=== PATIENT | female | born 1980 | race African-American/Black ===

== ENCOUNTER 2017-11-26 01:16 | Emergency (ER) | payer MEDICAID ==
[~2017-11-26] VITALS: Ht 157.5 cm; Wt 65.8 kg
[2017-11-26] MEDS ORDERED: Sodium Chloride 500ML 500 ML IV ONE (01:42)
[2017-11-26] MEDS ORDERED: Tubing IV Cassette IV ONE (01:53)
[2017-11-26 02:06] LABS: BASOPHILS % (AUTO) 1.1 % (0.0-2.0); HEMATOCRIT 37.7 % (37.0-47.0); HEMOGLOBIN 11.7 G/DL (12.0-16.0); LYMPHOCYTES % (AUTO) 37.9 % (20.0-45.0); MEAN CORPUSCULAR VOLUME 75 FL (80-99); MONOCYTES % (AUTO) 7.7 % (1.0-10.0); NEUTROPHILS % (AUTO) 51.4 % (45.0-75.0); PLATELET COUNT 260 K/UL (150-450); RED BLOOD COUNT 4.99 M/UL (4.20-5.40); WHITE BLOOD COUNT 7.5 K/UL (4.8-10.8)
[2017-11-26 02:15] LABS: ANION GAP 7 mmol/L (5-15); BLOOD UREA NITROGEN 16 mg/dL (7-18); CALCIUM 8.6 MG/DL (8.5-10.1); CARBON DIOXIDE 26 MMOL/L (21-32); CHLORIDE 104 MMOL/L (98-107); POTASSIUM 3.7 MMOL/L (3.5-5.1); SODIUM 137 MMOL/L (136-145)
[2017-11-26 02:19] LABS: ALANINE AMINOTRANSFERASE 14 U/L (12-78); ALBUMIN 4.1 G/DL (3.4-5.0); ALBUMIN/GLOBULIN RATIO 1.1 (1.0-2.7); ALKALINE PHOSPHATASE 63 U/L (46-116); ASPARTATE AMINO TRANSFERASE 17 U/L (15-37); BILIRUBIN,TOTAL 0.3 MG/DL (0.2-1.0)
--- NOTE | 2017-11-26 02:28 | Emergency Room Report ---
History of Present Illness General Chief Complaint: Abdominal Pain Source: Patient Present Illness HPI 37-year-old female presents to ED complaining of spotting and abdominal pain. Started approximately 5 days ago. Patient notes initial spotting and test yesterday which was positive. Patient states she passed large clots yesterday. Pain is cramping, 8/10, nonradiating. Denies fevers or chills. Denies nausea or vomiting. No other aggravating relieving factors. Denies any other associated symptoms Allergies: Coded Allergies: No Known Allergies (Unverified , 04/08/16) Patient History Past Medical History: none Past Surgical History: none Pertinent Family History: none Social History: Denies: smoking, alcohol use, drug use Last Menstrual Period: 11/20/17 Now: No - Possible miscarriage Immunizations: UTD Reviewed Nursing Documentation: PMH: Agreed, PSxH: Agreed Nursing Documentation-PMH Past Medical History: No Stated History Review of Systems All Other Systems: negative except mentioned in HPI Physical Exam Vital Signs Date Time Temp Pulse Resp B/P (MAP) Pulse Ox O2 Delivery O2 Flow Rate FiO2 11/26/17 01:22 98.1 97 16 111/76 100 Room Air Sp02 EP Interpretation: reviewed, normal General Appearance: no apparent distress, alert, GCS 15, non-toxic Head: normocephalic, atraumatic Eyes: bilateral eye normal inspection, bilateral eye PERRL ENT: hearing grossly normal, normal pharynx, no angioedema, normal voice Neck: full range of motion, supple/symm/no masses Respiratory: chest non-tender, lungs clear, normal breath sounds, speaking full sentences Cardiovascular #1: regular rate, rhythm, no edema Cardiovascular #2: 2+ carotid (R), 2+ carotid (L), 2+ radial (R), 2+ radial (L) , 2+ dorsalis pedis (R), 2+ dorsalis pedis (L) Gastrointestinal: normal bowel sounds, non tender, soft, non-distended, no guarding, no rebound Rectal: deferred Genitourinary: normal inspection, no CVA tenderness Musculoskeletal: back normal, gait/station normal, normal range of motion, non- tender Neurologic: alert, oriented x3, responsive, motor strength/tone normal, sensory intact, speech normal Psychiatric: judgement/insight normal, memory normal, mood/affect normal, no suicidal/homicidal ideation Reflexes: 3+ bicep (R), 3+ bicep (L), 3+ tricep (R), 3+ tricep (L), 3+ knee (R) , 3+ knee (L) Skin: normal color, no rash, warm/dry, well hydrated Lymphatic: no adenopathy Medical Decision Making Diagnostic Impression: Primary Impression: Miscarriage ER Course Hospital Course 37-year-old F presents to ED complaining of vaginal bleeding, pain. + Differential diagnoses include: gastrits, gastroenterits, ectopic , ovarian torsion/cyst, UTI Clinical course Patient placed on stretcher in ED. After initial history and physical I ordered labs, IV fluids and pelvic ultrasound. Labs-no leukocytosis, electrolytes okay, beta hCG 13,000 Pelvic ultrasound- no IUP detected, heterogenous material noted in endocervix. L hemorrhagic cyst Clinically, findings consistent with ongoing miscarriage. Discussed findings with patient. Recommended close followup with SWIMMING POOL SERVICE TECHNICIAN for repeat ultrasound and to make sure beta hCG is trending down Diagnosis - miscarriage Stable and discharged to home with Rx Tylenol #3. Followup with PMD/SWIMMING POOL SERVICE TECHNICIAN. Return to ED if symptoms recur or worsen Labs Test 11/26/17 01:51 11/26/17 02:01 White Blood Count 7.5 K/UL (4.8-10.8) Red Blood Count 4.99 M/UL (4.20-5.40) Hemoglobin 11.7 G/DL (12.0-16.0) Hematocrit 37.7 % (37.0-47.0) Mean Corpuscular Volume 75 FL (80-99) Mean Corpuscular Hemoglobin 23.3 PG (27.0-31.0) Mean Corpuscular Hemoglobin Concent 30.9 G/DL (32.0-36.0) Red Cell Distribution Width 12.0 % (11.6-14.8) Platelet Count 260 K/UL (150-450) Mean Platelet Volume 10.1 FL (6.5-10.1) Neutrophils (%) (Auto) 51.4 % (45.0-75.0) Lymphocytes (%) (Auto) 37.9 % (20.0-45.0) Monocytes (%) (Auto) 7.7 % (1.0-10.0) Eosinophils (%) (Auto) 2.0 % (0.0-3.0) Basophils (%) (Auto) 1.1 % (0.0-2.0) Sodium Level 137 MMOL/L (136-145) Potassium Level 3.7 MMOL/L (3.5-5.1) Chloride Level 104 MMOL/L (98-107) Carbon Dioxide Level 26 MMOL/L (21-32) Anion Gap 7 mmol/L (5-15) Blood Urea Nitrogen 16 mg/dL (7-18) Creatinine 1.0 MG/DL (0.55-1.30) Estimat Glomerular Filtration Rate > 60 mL/min (>60) Glucose Level 109 MG/DL (74-106) Calcium Level 8.6 MG/DL (8.5-10.1) Total Bilirubin 0.3 MG/DL (0.2-1.0) Aspartate Amino Transf (AST/SGOT) 17 U/L (15-37) Alanine Aminotransferase (ALT/SGPT) 14 U/L (12-78) Alkaline Phosphatase 63 U/L (46-116) Total Protein 8.0 G/DL (6.4-8.2) Albumin 4.1 G/DL (3.4-5.0) Globulin 3.9 g/dL Albumin/Globulin Ratio 1.1 (1.0-2.7) Lipase 151 U/L (73-393) Human Chorionic Gonadotropin, Quant 73305 mIU/mL (1-6) Human Chorionic Gonadotropin, Qual Positive CT/MRI/US Diagnostic Results CT/MRI/US Diagnostic Results : Imaging Test Ordered: OB US Impression heterogenous material in endocervix. L hemorrhagic cyst. no IUP identified Last Vital Signs Date Time Temp Pulse Resp B/P (MAP) Pulse Ox O2 Delivery O2 Flow Rate FiO2 11/26/17 01:22 98.1 97 16 111/76 100 Room Air Status: improved Disposition: HOME, SELF-CARE Condition: Stable Scripts Acetaminophen With Codeine (T#3) (TYLENOL #3 TAB*) Y Tab 1 TAB ORAL Q8H Y for For Pain, #20 TAB Prov: ED PERRIN M.D. 11/26/17 Referrals: NOT CHOSEN IPA/,REFERRING (PCP) ED PERRIN M.D. Nov 26, 2017 02:28
[2017-11-26 03:15] VITALS: BP 116/74
[2017-11-26] MEDS ORDERED: ACETAMINOPHEN-1 EAC1 ORAL (03:41)
[2017-11-26 04:00] VITALS: BP 116/74
--- NOTE | 2017-11-29 10:36 | Diagnostic Imaging Report ---
Indication: Pelvic bleeding with beta hCG of 13,000. Technique: Transabdominal and endovaginal pelvic ultrasound. Comparison: None Findings: Uterus measures 8.8 x 4.6 cm. There is no intrauterine . There is heterogeneous fluid in the endometrial canal. The endometrial echo complex is heterogeneous with areas of echogenicity grossly measuring approximately 1.3 cm. The right ovary measures 2.8 x 1.8 cm and is unremarkable. The left ovary measures approximately 5.2 x 2.6 cm with a heterogeneous and thick walled cystic structure along its posterior aspect measuring approximately 2.4 cm. Impression: No intrauterine identified. Heterogeneous fluid in the endometrial canal with heterogeneous echogenicity of the endometrial echo complex grossly measuring 1.3 cm. Findings could represent a spontaneous but possibility of ectopic cannot be excluded. Clinical/laboratory correlation recommended. Gynecological evaluation recommended. Approximately 2.4 cm thick-walled cystic structure involving the posterior aspect of the left ovary could represent a corpus luteum or hemorrhagic cyst. Follow-up recommended for further evaluation. Findings discussed with Dr. Meraz at 0830 hours by phone.
== END 2017-11-26 04:00 | disposition home or self-care (01) ==
LOC: EMR 01:33
DX: O03.9 Complete or unspecified spontaneous abortion without complication (principal)
CPT/HCPCS: 36415; 76830; 76856; 80053; 83690; 84702; 84703; 85025; 96360; 99284; J7040

== ENCOUNTER 2017-12-08 10:55 | Observation (INO) | payer MEDICAID ==
[~2017-12-08] VITALS: Ht 157.5 cm; Wt 59.0 kg
[2017-12-08] VITALS (11 sets, daily range): BP systolic 93–121; BP diastolic 49–79
[~2017-12-08 10:55] MED LIST: ACETAMINOPHEN-1 EAC1 ORAL; Dexamethasone 4mg/ml vial ONE; Glycopyrrolate 0.2mg/ml 1ml Vial ONE; Ketorolac 30mg Inj ONE; LR 1000ml ONE; Metoclopramide 10mg/2ml Inj ONE; Midazolam 2mg/2ml Inj ONE; NS Irrig 1000ml ONE; Nimbex 2mg/ml Inj 10ML IVP ONE; Sterile Water Irrig 1000ml IRRIG ONE; Succinylcholine 20mg/ml 10ml vial ONE; fentaNYL 100 mcg/2 mL IV ONE
[2017-12-08] MEDS ORDERED: NKM (11:17)
[2017-12-08] MEDS ORDERED: Ketorolac 30mg Inj IV ONE (11:45)
[2017-12-08 12:27] LABS: BASOPHILS % (AUTO) 1.7 % (0.0-2.0); EOSINOPHILS % (AUTO) 0.9 % (0.0-3.0); HEMATOCRIT 34.3 % (37.0-47.0); HEMOGLOBIN 10.3 G/DL (12.0-16.0); LYMPHOCYTES % (AUTO) 33.9 % (20.0-45.0); MEAN CORPUSCULAR VOLUME 77 FL (80-99); NEUTROPHILS % (AUTO) 56.5 % (45.0-75.0); PLATELET COUNT 270 K/UL (150-450); RED BLOOD COUNT 4.48 M/UL (4.20-5.40); RED CELL DISTRIBUTION WIDTH 12.3 % (11.6-14.8); WHITE BLOOD COUNT 5.5 K/UL (4.8-10.8)
[2017-12-08 12:38] LABS: APPEARANCE,URINE SLIGHTLY CLOUDY; BILIRUBIN, URINE NEGATIVE (NEGATIVE); COLOR,URINE PALE YELLOW; GLUCOSE, URINE (UA) NEGATIVE (NEGATIVE); KETONES,URINE NEGATIVE (NEGATIVE); LEUKOCYTE ESTERASE ,URINE 1+ (NEGATIVE); NITRITE,URINE NEGATIVE (NEGATIVE); PH,URINE 7 (4.5-8.0); PROTEIN,URINE NEGATIVE (NEGATIVE); UROBILINOGEN,URINE NORMAL MG/DL (0.0-1.0)
[2017-12-08 12:44] LABS: ANION GAP 8 mmol/L (5-15); BLOOD UREA NITROGEN 7 mg/dL (7-18); CALCIUM 9.7 MG/DL (8.5-10.1); CARBON DIOXIDE 28 MMOL/L (21-32); CHLORIDE 102 MMOL/L (98-107); CREATININE 0.7 MG/DL (0.55-1.30); POTASSIUM 3.9 MMOL/L (3.5-5.1); SODIUM 138 MMOL/L (136-145)
[2017-12-08 12:48] LABS: ALANINE AMINOTRANSFERASE 9 U/L (12-78); ALBUMIN/GLOBULIN RATIO 1.1 (1.0-2.7); ALKALINE PHOSPHATASE 57 U/L (46-116); ASPARTATE AMINO TRANSFERASE 17 U/L (15-37); BILIRUBIN,TOTAL 0.5 MG/DL (0.2-1.0)
--- NOTE | 2017-12-08 14:03 | Emergency Room Report ---
History of Present Illness General Chief Complaint: Abdominal Pain Source: Patient Present Illness HPI 37-year-old female presents with sharp abdominal pain since last night Used only one pad for a small episode of vaginal bleeding this morning over the last week has had abdominal cramping with vaginal bleeding, clots Was here one week prior, beta quant 13k, no IUP on sono Was told to followup for repeat sono - wasnt able to get repeat sono in the interim Allergies: Coded Allergies: No Known Allergies (Unverified , 04/08/16) Patient History Past Medical History: none Past Surgical History: none Pertinent Family History: none Social History: Denies: smoking, alcohol use, drug use Last Menstrual Period: 09/2017 Now: Yes : 3 Para: 2 Reviewed Nursing Documentation: PMH: Agreed, PSxH: Agreed Nursing Documentation-PMH Past Medical History: No Stated History Review of Systems All Other Systems: negative except mentioned in HPI Physical Exam Vital Signs Date Time Temp Pulse Resp B/P (MAP) Pulse Ox O2 Delivery O2 Flow Rate FiO2 12/08/17 11:11 98.8 86 16 109/70 99 Room Air Sp02 EP Interpretation: reviewed, normal General Appearance: normal inspection, well appearing, no apparent distress, alert, GCS 15, non-toxic Head: normocephalic, atraumatic Eyes: bilateral eye PERRL, bilateral eye EOMI ENT: normal ENT inspection, hearing grossly normal, normal pharynx, no angioedema, normal voice, TMs + canals normal, uvula midline, moist mucus membranes Neck: normal inspection, full range of motion, supple, thyroid normal, no meningismus, no bony tend Respiratory: normal inspection, lungs clear, normal breath sounds, no rhonchi, no respiratory distress, no retraction, no accessory muscle use, no wheezing, speaking full sentences Cardiovascular #1: regular rate, rhythm, no edema, no JVD, normal capillary refill Gastrointestinal: normal inspection, normal bowel sounds, non tender, soft, no mass, no peritonitis, non-distended, no guarding, no hernia, no pulsatile mass Genitourinary: no CVA tenderness Musculoskeletal: normal inspection, back normal, normal range of motion, no calf tenderness, pelvis stable, [place]'s Sign negative Neurologic: normal inspection, alert, oriented x3, responsive, residential building inspector III-XII nml as tested, motor strength/tone normal, cerebellar normal, normal gait, speech normal Psychiatric: normal inspection, judgement/insight normal, mood/affect normal, no suicidal/homicidal ideation, no delusions Skin: normal inspection, normal color, no rash Lymphatic: normal inspection, no adenopathy Medical Decision Making Diagnostic Impression: Primary Impression: Ectopic Qualified Codes: O00.90 - Unspecified ectopic without intrauterine Additional Impressions: Abdominal pain Qualified Codes: R10.84 - Generalized abdominal pain Vaginal bleeding ER Course VSS, afebrile H&h stable Urine preg + 13k to 35K on beta HCG Sono today no IUP, + free fluid Suspected ectopic given rising beta HCG Endorsed to Dr Lombardi working with Dr Brooks at 2pm Will need to go to OR T&S, coags in progress IVF running Last Vital Signs Date Time Temp Pulse Resp B/P (MAP) Pulse Ox O2 Delivery O2 Flow Rate FiO2 12/08/17 12:22 98.8 12/08/17 12:12 84 16 110/70 99 Room Air Status: improved Disposition: ADMITTED INPATIENT Condition: Critical Referrals: NON PHYSICIAN (PCP) RIGO RIOS M.D. Dec 08, 2017 14:03
[2017-12-08] MEDS ORDERED: LR 1000ml 1,000 ML IV STA (14:12)
--- NOTE | 2017-12-08 14:18 | Diagnostic Imaging Report ---
Indication: Pain and bleeding. Beta hCG of 35,609. Technique: Multiplanar grayscale and color Doppler imaging of the pelvis utilizing both transabdominal and transvaginal approach. Comparison: 11/26/2017 Findings: Uterus measures 9.4 x 5.4 x 3.9 cm. No intrauterine is identified. The endometrial echo complex is heterogeneous and measures 1.4 cm in thickness. Right ovary measures 2.7 x 2.3 x 1 0.600/5.2 mL. Vascular flow to the right ovary is documented. The left ovary measures 3.3 x 2.7 x 1.6 in meters/7.5 mL vascular flow to the left ovary is documented. A heterogeneous, thick-walled structure with vascularity is noted extending posteriorly from the region of the left ovary. This is difficult to measure but conglomerate area with the left ovary measures up to 6 cm. Free fluid is noted in the pelvis. IMPRESSION: Lack of visualization of intrauterine with abnormal left adnexal, extraovarian lesion. Given the patient's beta hCG value of 35,609, findings are most concerning for ectopic . Free fluid noted in the pelvis. This may suggest rupture, although this finding is not specific and can be seen in cases of intact ectopic pregnancies. Clinical correlation and parts room clerk evaluation recommended. Findings discussed with of the ED via telephone conversation.
--- NOTE | 2017-12-08 15:24 | History & Physical ---
History and Physical History & Physicial GYNECOLOGY HISTORY AND PHYSICAL CC: abdominal pain, vaginal bleeding HPI: Ms Wade is a 37yo who presented to the ED with worsening abdominal pain since last night, 10/10 at its worst, lower abdomen radiating up into her shoulder at times. No difficulty with deep breaths. She reports being seen here in the ED ~1w ago with a similar complaint, was told she was but that there was not a in her uterus, and that she needed to follow up in 48 hours for a repeat set of labs. She was supposed to follow up with her QUALITY CONTROL COORDINATOR Dr. Geiger, but was unable to go to her office due to scheduling conflicts. She presents today with severe abdominal pain, persistent vaginal bleeding/spotting, and Beta-hCG 35k (increased from 13k at last ED visit). Her pain is currently controlled with IV medications. PMH: Denies hx of asthma, DM, HTM PSH: C/S x1, denies any other surgeries Meds: Denies any current medications Allergies: NKDA OBHx: - (2000), SAb (2013), C/S (2015) GynHx: Vitals: BP 99/49, HR 64, RR 14, BP 99/49, O2 99%RA EXAM HEENT: OP clear, MMM Neck: No thyromegaly CV: RRR Pulm: no increased work of breathing, no pain on deep inspiration (only pressure ) Abd: soft, moderate TTP throughout, severe pain in LLQ, +mild guarding, +rebound Pelvic: deferred Ext: WWP Labs: CBC 5.5>10/3/34.3<270 PT 10.9, PTT 30, INR 1.0 Beta-hCG 68344 IMAGING: Comparison: 11/26/2017 Findings: Uterus measures 9.4 x 5.4 x 3.9 cm. No intrauterine is identified. The endometrial echo complex is heterogeneous and measures 1.4 cm in thickness. Right ovary measures 2.7 x 2.3 x 1 0.600/5.2 mL. Vascular flow to the right ovary is documented. The left ovary measures 3.3 x 2.7 x 1.6 in meters/7.5 mL vascular flow to the left ovary is documented. A heterogeneous, thick-walled structure with vascularity is noted extending posteriorly from the region of the left ovary. This is difficult to measure but conglomerate area with the left ovary measures up to 6 cm. Free fluid is noted in the pelvis. IMPRESSION: Lack of visualization of intrauterine with abnormal left adnexal, extraovarian lesion. Given the patient's beta hCG value of 35,609, findings are most concerning for ectopic . Free fluid noted in the pelvis. This may suggest rupture, although this finding is not specific and can be seen in cases of intact ectopic pregnancies. Clinical correlation and marine oiler evaluation recommended. Findings discussed with of the ED via telephone conversation. ASSESSMENT/PLAN: 37yo with ectopic , likely ruptured. Hemodynamically stable at this time, but recommend surgical management as soon as possible. Patient was counseled on R/B/A to the procedure, and that given her current clinical picture I recommend laparoscopic salpingectomy vs salpingo- oophorectomy (depending on whether her ovary is involved). She understands the risks, including risk of bleeding, infection, and damage to surrounding organs, and she accepts the risks and has signed the consent. She is willing to undergo blood transfusion if necessary as a life-saving measure. We will proceed to the OR once an OR is available. The patient will be discharged home after the procedure, barring any complications. Blood type unknown, T&S pending, will administer Rhogam if clinically indicated. Zulma Lombardi M.D. Dec 08, 2017 15:24
[2017-12-08] MEDS ORDERED: Morphine Sulfate 4mg/ml Inj IVP ONE (17:30)
--- NOTE | 2017-12-08 17:44 | Pre-Procedure Note/Attestation ---
Pre-Procedure Note/Attestation Complete Prior to Procedure Planned Procedure: left - Patient consented for unilateral removal of tube, imaging consistent with left ectopic Procedure Narrative: Laparoscopic unilateral salpingectomy, vs. salpingo-oophorectomy Indications for Procedure Pre-Operative Diagnosis: Ruptured ectopic Attestation I attest that I discussed the nature of the procedure; its benefits; risks and complications; and alternatives (and the risks and benefits of such alternatives ), prior to the procedure, with the patient (or the patient's legal indirect sales representative). I attest that, if there was a reasonable possibility of needing a blood transfusion, the patient (or the patient's legal indirect sales representative) was given the [place] Department [employer] standardized written summary, pursuant to the [place] Blood Safety Act ([place] Health and Safety Code # 1645, as amended). I attest that I re-evaluated the patient just prior to the surgery and that there has been no change in the patient's H&P, except as documented below: None Zulma Lombardi M.D. Dec 08, 2017 17:43
[2017-12-08] MEDS ORDERED: Ropivacaine 5mg/ml Vial 30ml INJ ONE (17:47)
[2017-12-08] MEDS ORDERED: Midazolam 2mg/2ml Inj ONE (18:04)
[2017-12-08] MEDS ORDERED: Propofol 200mg/20ml IV ONE (18:05)
[2017-12-08] MEDS ORDERED: fentaNYL 100 mcg/2 mL IV ONE (18:05)
[2017-12-08] MEDS ORDERED: NS Irrig 1000ml IRRIG ONE (18:10)
[2017-12-08] MEDS ORDERED: LR 1000ml 1,000 ML IVLG SCH (18:44)
[2017-12-08] MEDS ORDERED: fentaNYL 100 mcg/2 mL IV PRN (18:45)
[2017-12-08] MEDS ORDERED: Ketorolac 30mg Inj IV PRN (18:45)
[2017-12-08] MEDS ORDERED: DiphenhydrAMINE 50mg/ml Inj IVP PRN (18:45)
[2017-12-08] MEDS ORDERED: Morphine Sulfate 2mg/ml Inj IVP PRN (18:45)
[2017-12-08] MEDS ORDERED: Midazolam 2mg/2ml Inj IVP PRN (18:45)
--- NOTE | 2017-12-08 18:49 | Anethesia Preoperative Eval ---
Anesthesia Pre-op PMH/ROS General Date of Evaluation: Dec 08, 2017 Time of Evaluation: 18:03 Anesthesiologist: Tatiana ASA Score: ASA 1 Mallampati Score Class I : Soft palate, uvula, fauces, pillars visible Class II: Soft palate, uvula, fauces visible Class III: Soft palate, base of uvula visible Class IV: Only hard plate visible Mallampati Classification: Class I Surgeon: Harjit Diagnosis: Ectopic Surgical Procedure: Lap Salphingectomy Anesthesia History: none Family History: no anesthesia problems Allergies: Coded Allergies: No Known Allergies (Unverified , 04/08/16) Anesthesia Pre-op Phys. Exam Physician Exam Last Vital Signs Date Time Temp Pulse Resp B/P (MAP) Pulse Ox O2 Delivery O2 Flow Rate FiO2 12/08/17 17:53 70 18 109/68 100 Room Air 12/08/17 14:19 98.2 Constitutional: NAD Neurologic: CN 2-12 intact Cardiovascular: RRR Respiratory: CTA Gastrointestinal: S/NT/ND Airway Exam Mallampati Score: Class I MO: full ROM: full Teeth: intact Anesthesia Pre-op A/P Labs Hematology Test 12/08/17 12:00 White Blood Count 5.5 K/UL (4.8-10.8) Red Blood Count 4.48 M/UL (4.20-5.40) Hemoglobin 10.3 G/DL (12.0-16.0) L Hematocrit 34.3 % (37.0-47.0) L Mean Corpuscular Volume 77 FL (80-99) L Mean Corpuscular Hemoglobin 23.1 PG (27.0-31.0) L Mean Corpuscular Hemoglobin Concent 30.1 G/DL (32.0-36.0) L Red Cell Distribution Width 12.3 % (11.6-14.8) Platelet Count 270 K/UL (150-450) Mean Platelet Volume 9.2 FL (6.5-10.1) Neutrophils (%) (Auto) 56.5 % (45.0-75.0) Lymphocytes (%) (Auto) 33.9 % (20.0-45.0) Monocytes (%) (Auto) 7.0 % (1.0-10.0) Eosinophils (%) (Auto) 0.9 % (0.0-3.0) Basophils (%) (Auto) 1.7 % (0.0-2.0) Coagulation Test 12/08/17 14:40 Prothrombin Time 10.9 SEC (9.30-11.50) Prothromb Time International Ratio 1.0 (0.9-1.1) Activated Partial Thromboplast Time 30 SEC (23-33) Chemistry Test 12/08/17 12:00 Sodium Level 138 MMOL/L (136-145) Potassium Level 3.9 MMOL/L (3.5-5.1) Chloride Level 102 MMOL/L (98-107) Carbon Dioxide Level 28 MMOL/L (21-32) Anion Gap 8 mmol/L (5-15) Blood Urea Nitrogen 7 mg/dL (7-18) Creatinine 0.7 MG/DL (0.55-1.30) Estimat Glomerular Filtration Rate > 60 mL/min (>60) Glucose Level 88 MG/DL (74-106) Calcium Level 9.7 MG/DL (8.5-10.1) Total Bilirubin 0.5 MG/DL (0.2-1.0) Aspartate Amino Transf (AST/SGOT) 17 U/L (15-37) Alanine Aminotransferase (ALT/SGPT) 9 U/L (12-78) L Alkaline Phosphatase 57 U/L (46-116) Total Protein 7.6 G/DL (6.4-8.2) Albumin 4.0 G/DL (3.4-5.0) Globulin 3.6 g/dL Albumin/Globulin Ratio 1.1 (1.0-2.7) Human Chorionic Gonadotropin, Quant 27727 mIU/mL (1-6) H Urine Test Test 12/08/17 12:00 Urine HCG, Qualitative Positive Risk Assessment & Plan Plan: GA Status Change Before Surgery: No Pre-Antibiotics Given Within 1 Hr of Incision: No Felice Simpson M.D. Dec 08, 2017 18:49
--- NOTE | 2017-12-08 18:50 | Immediate Post-Op Evaluation ---
Immediate Post-Op Evalulation Immediate Post-Op Evalulation Procedure: Lap Salphingectomy Date of Evaluation: Dec 08, 2017 Time of Evaluation: 20:00 IV Fluids: 1000 Blood Products: 0 Estimated Blood Loss: 10 Urinary Output: 100 Blood Pressure Systolic: 126 Blood Pressure Diastolic: 78 Pulse Rate: 68 Respiratory Rate: 18 O2 Sat by Pulse Oximetry: 99 Temperature (Fahrenheit): 98 Pain Score (1-10): 0 Nausea: No Vomiting: No Patient Status: awake, reacts, patent, extubated Hydration Status: adequate Given Within 1 Hr of Incision: Felice Knutson M.D. Dec 08, 2017 18:50
--- NOTE | 2017-12-08 18:52 | 48 Hour Post Anesthesia Eval ---
Post Anesthesia Evaluation Procedure: Lap Salphingectomy Date of Evaluation: Dec 10, 2017 Time of Evaluation: 09:00 Blood Pressure Systolic: 130 0: 63 Pulse Rate: 79 Respiratory Rate: 19 Temperature (Fahrenheit): 98 O2 Sat by Pulse Oximetry: 99 Airway: patent Nausea: No Vomiting: No Pain Intensity: 0 Hydration Status: adequate Mental Status/LOC: patient returned to baseline Post-Anesthesia Complications: none Follow-up care needed: patient intructions given Felice Simpson M.D. Dec 08, 2017 18:52
[2017-12-08] MEDS ORDERED: Meperidine 50mg/ml Inj(FOR RIGORS ONLY) IVP ONE (21:45)
[2017-12-08] MEDS ORDERED: HYDROmorphone 1mg/ml Carpuject IM PRN (22:00)
[2017-12-08] MEDS ORDERED: HYDROcodone/Acetamin 10/325 tab ORAL PRN (22:00)
[2017-12-08] MEDS ORDERED: Norco 5mg/325mg tab ORAL PRN (22:00)
--- NOTE | 2017-12-08 22:04 | Brief Operative Note ---
Immediate Post Operative Note Operative Note Pre-op Diagnosis: Ruptured ectopic Procedure: Laparoscopic left salpingectomy Post-op Diagnosis: Ruptured ectopic Post-op Diagnosis: same as pre-op Findings: consistent w/pre-op dx studies Surgeon: Zulma Lombardi MD Registered Dietetic Technician: Jacobo Brooks MD Anesthesiologist: MD Tatiana Anesthesia: general Specimen: yes - Products of conception and left tube Complications: none Condition: stable Fluids: 3000cc Crystalloid Estimated Blood Loss: volume - 2200cc total (200cc blood loss during procedure , 2000cc hemoperitoneum) Drains: none Implant(s) used?: No Zulma Lombardi M.D. Dec 08, 2017 22:04
--- NOTE | 2017-12-08 22:12 | Operative Note - PDOC ---
Operative Note Operative Note Pre-op Diagnosis: Ruptured ectopic Procedure: Laparoscopic left salpingectomy Post-op Diagnosis: Ruptured ectopic Post-op Diagnosis: same as pre-op Operative Findings: consistent w/pre-op dx studies Surgeon: Zulma Lombardi MD Manager Council: Jacobo Brooks MD Anesthesiologist: MD Tatiana Anesthesia: general Specimen: yes - Products of conception and left tube Complications: none Condition: stable Fluids: 3000cc Crystalloid Estimated Blood Loss: volume - 2200cc total (200cc blood loss during procedure , 2000cc hemoperitoneum) Drains: none - Urine output 100cc Implant(s) used?: No Indications for Procedure Patient presented to the ER with severe abdominal pain, clinical findings consistent with ruptured ectopic Description of Procedure The R/B/A were discussed with the patient and the patient signed the appropriate consent. The patient was taken to the operating room and placed in dorsal supine position where general anesthesia was obtained without difficulty. The patient was then placed in dorsal lithotomy position in Tylor stirrups. Exam under anesthesia revealed an 8cm uterus, midline and mobile. Fullness was appreciated in the posterior cul-de-sac. No discrete adnexal masses noted. The arms were tucked in position at the patient's sides. The patient was then prepped and draped in the usual sterile fashion. De Dios catheter was placed. A time out was called to verify patient and procedure. Attention was turned to the pelvis where a speculum was inserted into the vagina. The anterior lip of the cervix was grasped with a single-toothed tenaculum and the uterus sounded to 9cm. The cervix was dilated to accommodate the uterine manipulator which was placed without difficulty. The tenaculum and speculum were removed, and attention was turned to the abdomen. The umbilicus was injected with local anesthetic and an intraumbilical incision was made with an #11 blade scalpel. The Veress needle was inserted into the abdomen, and insufflation was obtained with CO2 gas. An 11mm Visiport was used to enter the abdomen under direct visualization. The camera was inserted, and no harm due to the procedure done was noted. A large volume of blood and clot was observed in the abdomen. Two accessory ports were placed in the bilateral lower quadrants under direct visualization after instillation of local anesthetic. There was brisk bleeding coming from the left fallopian tube, thus we immediately proceeded with salpingectomy. The left ovary, right tube and right ovary were observed to be normal in appearance. The left tube was grasped at the cornua, elevated, and dissected away from the ovary and uterus using bipolar cautery at the level of the mesosalpinx. Hemostasis was noted. The tube and products of conception were placed in an endocatch bag and removed via the umbilical port site. Copious irrigation of the abdomen was then performed to evacuate blood and clot from the cul-de-sac as well as from the perihepatic region. There were >2L of blood in the abdomen. Once irrigation was completed, the pedicle was reinspected for hemostasis. Excellent hemostasis was achieved with bipolar cautery. The lower quadrant ports were removed under direct visualization. The gas was allowed to escape. The umbilical port was removed under direct visualization. The fascia at the umbilicus was reapproximated using 0-Vicryl suture. The skin incisions were reapproximated with 4-0 Monocryl in a subcuticular running fashion followed by steri-strips with mastisol, and gauze with tegaderm. The uterine manipulator was removed, and the de dios catheter was removed. The patient was awakened from anesthesia and transferred to the PACU in stable condition. The patient will be observed overnight, and stat CBC will be drawn in PACU. Zulma Lombardi M.D. Dec 08, 2017 22:12
[2017-12-08 22:21] LABS: HEMATOCRIT 25.7 % (37.0-47.0); HEMOGLOBIN 7.7 G/DL (12.0-16.0); MEAN CORPUSCULAR VOLUME 78 FL (80-99); PLATELET COUNT 208 K/UL (150-450); RED CELL DISTRIBUTION WIDTH 12.3 % (11.6-14.8); WHITE BLOOD COUNT 8.1 K/UL (4.8-10.8)
[2017-12-08] MEDS: LR 1000ml 1,000 ML IV SCH (23:00)
[2017-12-09] MEDS: LR 1000ml 1,000 ML IV SCH ×3 (01:40→07:00)
[2017-12-09] MEDS ORDERED: Ketorolac 30mg Inj IV ONE (02:00)
[2017-12-09 04:00] VITALS: BP 109/72
[2017-12-09 07:34] LABS: HEMATOCRIT 19.9 % (37.0-47.0); MEAN CORPUSCULAR VOLUME 77 FL (80-99); PLATELET COUNT 187 K/UL (150-450); RED BLOOD COUNT 2.59 M/UL (4.20-5.40); RED CELL DISTRIBUTION WIDTH 12.4 % (11.6-14.8); WHITE BLOOD COUNT 9.3 K/UL (4.8-10.8)
[2017-12-09 07:55] LABS: HEMOGLOBIN 6.3 G/DL (12.0-16.0)
[2017-12-09 12:00] VITALS: BP 109/65
[2017-12-09 15:26] LABS: HEMATOCRIT 22.9 % (37.0-47.0); HEMOGLOBIN 7.5 G/DL (12.0-16.0); MEAN CORPUSCULAR VOLUME 78 FL (80-99); PLATELET COUNT 202 K/UL (150-450); RED BLOOD COUNT 2.94 M/UL (4.20-5.40); RED CELL DISTRIBUTION WIDTH 13.2 % (11.6-14.8); WHITE BLOOD COUNT 8.6 K/UL (4.8-10.8)
[2017-12-09 15:47] LABS: BASOPHILS % (AUTO) 0.7 % (0.0-2.0); EOSINOPHILS % (AUTO) 1.3 % (0.0-3.0); LYMPHOCYTES % (AUTO) 20.5 % (20.0-45.0); MONOCYTES % (AUTO) 6.3 % (1.0-10.0); NEUTROPHILS % (AUTO) 71.1 % (45.0-75.0)
[2017-12-09 16:00] VITALS: BP 95/54
[2017-12-09] MEDS ORDERED: FERROUS SULFAT325 M2 ORAL (17:10)
[2017-12-09] MEDS ORDERED: Tubing IV Blood Pump IV ONE (17:30)
[2017-12-09] MEDS ORDERED: LR 1000ml ONE (17:30)
[2017-12-09] MEDS ORDERED: Tubing IV Secondary IV ONE (17:30)
[2017-12-09] MEDS ORDERED: NS 500ML ONE (17:30)
--- NOTE | 2017-12-12 15:15 | General Progress Note ---
Progress Note Progress Note LATE ENTRY PATIENT SEEN POD1 (12/09) at ~1030 am GYNECOLOGY PROGRESS NOTE POD1 s/p LSC L salpingectomy for ruptured ectopic . 2200cc EBL (2000cc hemoperitoneum, 200cc intra-op blood loss) Patient feeling dizzy with standing and repeat AM CBC Hgb 6.3. Ordered 1u pRBC, transfusing. Pain moderate, but able to get up. Tolerating PO, voiding, and passing flatus. Only complaint is pain which is well controlled with medications. Vitals: wnl (reviewed witn RN) Tmax 99.9, resolved to 98.3 BP 109/65 P 93-99 RR 18-20 O2 100% RA Exam: Gen: pale, NAD CV: RRR Pulm: No increased work of breathing Abd: soft, moderately distended, appropriately TTP Ext: no calf TTP Patient is POD1 s/p LSC L salpingectomy for ruptured ectopic with > 2000cc hemoperitoneum. Patient with post-op anemia secondary to blood loss from ruptured ectopic. Transfusing 1u now. Anticipate appropriate rise in H/H, but will repeat CBC post-transfusion. If Hgb >7 after 1u anticipate d/c home with return precautions and follow up with her [employer] Dr. Geiger in 1-2 weeks for incision check and post-op evaluation. Patient given my contact info if needed for an emergency (if she is unable to see her physician) Blood type Rh positive, Rhogam not indicated. Rx for [place] given. Recommended Motrin 600mg q6h, FeSO4 325mg BID, and Colace 100mg BID Signed: MD Harjit Lovell Carla M.D. Dec 12, 2017 15:15
--- NOTE | 2017-12-21 17:42 | Discharge Summary ---
Discharge Summary Hospital Course Date of Admission Dec 08, 2017 at 21:47 Date of Discharge Dec 09, 2017 at 17:31 Admitting Diagnosis ECTOPIC STALIN Wade is a 37 year old female who was admitted on Dec 08, 2017 at 21:47 for Miscarrying Hospital Course [id number] Discharge Discharge Disposition Patient was discharged to Home (01) Discharge Diagnoses: Melodie Donovan NP Dec 21, 2017 17:42
--- NOTE | 2017-12-22 12:26 | Discharge Summary ---
Discharge Summary Hospital Course Date of Admission Dec 08, 2017 at 21:47 Date of Discharge Dec 09, 2017 at 17:31 Admitting Diagnosis ECTOPIC Reason for Hospitalization: Large amount of hemoperitoneum, tachycardia with concern for post-op anemia STALIN Wade is a 37 year old female who was admitted on Dec 08, 2017 at 21:47 for intra-operative and post-operative tachycardia with large amount of hemoperitoneum due to ruptured ectopic . She was initially seen in the ED 1 week prior to admission with concern for ectopic and did not follow up with her primary WET MIX OPERATOR. She then re-presented to the ED on day of admission with ruptured ectopic and taken to the OR from the ED after diagnosis was made. Consultations Anesthesia Procedures Laparoscopic left salpingectomy Hospital Course Patient was taken to the OR where laparoscopic left salpingectomy was performed. There was ~200cc of intra-op blood loss in addition to >2000cc of blood in her abdomen due to the ruptured ectopic. She became tachycardic intra- op with low urine output. She was kept overnight for observation due to concern for anemia. On post-op day 1, her hemoglobin was noted to be 6.3 thus the decision was made to transfuse with 1u pRBCs after which time her Hgb jasper to 7.5 and she was discharged home with recommendations for oral iron and follow up with her WET MIX OPERATOR in 1-2 weeks. Patient was given prescriptions for [place] 5/ 325mg for severe pain and advised to take Motrin 600mg q6h for moderate pain. Stool softeners advised. Discharge Medications Continued Medications: Ferrous Sulfate (Ferrous Sulfate) 325 Mg Tablet. 325 MG ORAL BID, #30 TAB 0 Refills Discharge Condition Upon Discharge: stable Discharge Disposition Patient was discharged to Home (01) Discharge Diagnoses: (1) Status post laparoscopic surgery (2) Anemia associated with acute blood loss Discharge Instructions Discharge Instructions Follow up with: Primary WET MIX OPERATOR Dr. Geiger in 1-2 weeks Call MD/Return to Hospital if: Pain worsens, develop fever, redness/discharge around incision sites, SOB Diet: regular Activity: light activity, as tolerated, okay to shower May Return to Work/School On: Dec 25, 2017 For Surgical Patients Dressing Care: other - Remove tegaderm after shower POD2, OK to shower with steri-strips, make sure steri-strips dry after showering. No baths. May shower: Yes Contact your physician for: bleeding, pain, redness, swelling, yellowish discharge in the op. site, other - Fever Zulma Lombardi M.D. Dec 22, 2017 12:26
== END 2017-12-09 17:31 | disposition home or self-care (01) ==
LOC: EMR 11:35 → EDBEDREQ 15:15 → SUR 16:05 → EDBEDREQSVC 16:48 → 3E 21:47
DX: O00.102 Left tubal pregnancy without intrauterine pregnancy (principal); O24.119 Pre-existing type 2 diabetes mellitus, in pregnancy, unspecified trimester; E11.9 Type 2 diabetes mellitus without complications; O16.9 Unspecified maternal hypertension, unspecified trimester; D50.0 Iron deficiency anemia secondary to blood loss (chronic); Z3A.00 Weeks of gestation of pregnancy not specified
CPT/HCPCS: 36415; 59151; 76856; 80053; 81003; 81025; 84702; 85007; 85025; 85610; 85730; 86703; 86803; 86850; 86900; 86901; 86920; 99285; G0378; J0330; J1100; J1170; J1885; J2175; J2250; J2270; J2405; J2704; J2765; J2795; J3010; J7040; J7120; P9016; Z7512; 36430; 94003; 94150; 96360; 96361; 96372

== ENCOUNTER 2020-01-11 10:28 | Emergency (ER) | payer MEDICAID ==
[~2020-01-11] VITALS: Ht 157.5 cm; Wt 68.0 kg
[~2020-01-11 10:28] MED LIST changes: -Dexamethasone 4mg/ml vial ONE; +FERROUS SULFAT325 M2 ORAL; -Glycopyrrolate 0.2mg/ml 1ml Vial ONE; -Ketorolac 30mg Inj ONE; -LR 1000ml ONE; -Metoclopramide 10mg/2ml Inj ONE; -Midazolam 2mg/2ml Inj ONE; +NKM; -NS Irrig 1000ml ONE; -Nimbex 2mg/ml Inj 10ML IVP ONE; -Sterile Water Irrig 1000ml IRRIG ONE; -Succinylcholine 20mg/ml 10ml vial ONE; -fentaNYL 100 mcg/2 mL IV ONE
[2020-01-11 10:34] VITALS: BP 125/73
--- NOTE | 2020-01-11 10:40 | NUR ---
ED Nurse Note: patient walked into ED from home c/o laceraton on the lateral outer side of the hip that happened 3am this morning. patient reports "I slipped and cut myself on a broken glass." bleeding is controlled at the moment. sister at bedside. patient is alert awake x4 ambulatory, breathing unlabored and even, speaking in full sentences. bandage is applied. c/o 10/10 pain on the laceration site. patient on a hospital gown.
[2020-01-11] MEDS ORDERED: Tetanus/Diptheria/Pertussis IM ONE (11:00)
[2020-01-11] MEDS ORDERED: Lidocaine 1% Plain 30 ml INJ ONE ×2 (11:07→11:15)
[2020-01-11] MEDS ORDERED: Bacitracin Oint UD TOPIC ONE ×2 (11:32→11:45)
[2020-01-11] MEDS ORDERED: TYLENOL EXTRA500 MG ORAL (11:45)
[2020-01-11] MEDS ORDERED: BACITRACIN15 GM TOPIC (11:45)
[2020-01-11] MEDS ORDERED: Acetaminophen 500mg (ES) tab ORAL ONE (11:45)
[2020-01-11 11:53] VITALS: BP 125/73
--- NOTE | 2020-01-11 11:54 | NUR ---
ER DISCHARGE NOTE: Patient is cleared to be discharged per ERMD DR PERRIN, pt is aox4, on room air, with stable vital signs. pt was given dc and prescription instructions, pt was able to verbalize understanding, pt id band removed without complications. pt is able to ambulate with steady gait. pt took all belongings. dressing applied as ordered.
--- NOTE | 2020-01-12 07:06 | Emergency Room Report ---
History of Present Illness General Chief Complaint: Laceration Source: Patient Present Illness HPI 39-year-old female presents ED with laceration to left hip. States that yesterday she accidentally cut herself against a glass table in her house. Notes pain and bleeding to the left hip. Burning, 7 out of 10, nonradiating. Tetanus unknown. Denies any other injuries. No other aggravating relieving factors. Denies any other associated symptoms Allergies: Coded Allergies: No Known Allergies (Unverified , 04/08/16) Patient History Past Medical History: none Past Surgical History: none Pertinent Family History: none Social History: Denies: smoking, alcohol use, drug use Last Menstrual Period: 12/30/19 Now: No Immunizations: UTD Reviewed Nursing Documentation: PMH: Agreed; PSxH: Agreed Nursing Documentation-PMH Past Medical History: No Stated History Hx Cardiac Problems: No Hx Cancer: No Hx Gastrointestinal Problems: No Hx Neurological Problems: No Review of Systems All Other Systems: negative except mentioned in HPI Physical Exam Vital Signs Date Time Temp Pulse Resp B/P (MAP) Pulse Ox O2 Delivery O2 Flow Rate FiO2 01/11/20 10:34 98.2 99 16 125/73 96 Room Air Sp02 EP Interpretation: reviewed, normal General Appearance: no apparent distress, alert, GCS 15, non-toxic Head: normocephalic Eyes: bilateral eye normal inspection, bilateral eye PERRL ENT: normal ENT inspection Neck: full range of motion Respiratory: normal inspection Cardiovascular #1: normal inspection Gastrointestinal: normal inspection Rectal: deferred Genitourinary: no CVA tenderness Musculoskeletal: back normal, normal range of motion, gait/station normal, non- tender Neurologic: alert, motor strength/tone normal, oriented x3, sensory intact, responsive, speech normal Psychiatric: normal inspection Skin: laceration - 4cm laceration to L hip. no active bleeding Lymphatic: normal inspection Procedures Laceration/Wound Repair Laceration/Wound Repair : Consent: Verbal Wound Location: lower extremity - L hip Wound's Depth, Shape: into muscle, linear Wound Explored: clean Betadine Prep?: Yes Anesthesia: 1% Lidocaine Wound Debrided: minimal Wound Repaired With: ottoniel Layer Closure?: No Sterile Dressing Applied?: Yes Splint Applied?: No Sling Applied?: No Patient Tolerated: Well Complications: None Medical Decision Making Diagnostic Impression: Primary Impression: Laceration ER Course Hospital Course 39 yo F presents with laceration to L hip Clinical course Patient placed on stretcher. After initial history and physical I ordered tetanus shot. Wound irrigated. Anesthesia provided with lidocaine. Laceration repaired w/o complication. bacitracin/Dressing applied. I discussed findings with patient. Will discharge to home. Return to ED in 10 days for staple removal. Safe for discharge for close outpatient follow-up. States she has a PMD Diagnosis - laceration Stable and discharged to home with prescription for tylenol, bacitracin. wound Care instructions given. Followup with PMD in 10 days for suture removal. Return to ED if any signs of infection develop Last Vital Signs Date Time Temp Pulse Resp B/P (MAP) Pulse Ox O2 Delivery O2 Flow Rate FiO2 01/11/20 11:53 98.2 99 16 125/73 96 Room Air Status: improved Disposition: HOME, SELF-CARE Condition: Stable Scripts Acetaminophen* (TYLENOL EXTRA STRENGTH*) 500 Mg Tablet 500 MG ORAL Q8H PRN for Prn Headache/Temp > 101, #30 TAB 0 Refills Prov: Armen Russell MD 01/11/20 Bacitracin (Bacitracin) 28.4 Gm Oint...g. 1 APPLIC TOPIC THREE TIMES A DAY, #28.4 GM Prov: Armen Russell MD 01/11/20 Referrals: [facility] (PCP) Patient Instructions: Laceration Care, Adult Additional Instructions: have ottoniel removed in 10 days Armen Russell MD Jan 12, 2020 07:06
== END 2020-01-11 11:54 | disposition home or self-care (01) ==
LOC: EMR 11:11
DX: S71.012A Laceration without foreign body, left hip, initial encounter (principal); W25.XXXA Contact with sharp glass, initial encounter; Y92.9 Unspecified place or not applicable; Z23 Encounter for immunization
CPT/HCPCS: 12002; 90471; 90715; J2001; Z7502; 99282

== ENCOUNTER 2021-02-14 08:20 | Emergency (ER) | payer MEDICAID ==
[~2021-02-14] VITALS: Ht 157.5 cm; Wt 72.6 kg
[~2021-02-14 08:20] MED LIST changes: +BACITRACIN15 GM TOPIC; +TYLENOL EXTRA500 MG ORAL
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
[2021-02-14 08:55] VITALS: BP 110/70
[2021-02-14] MEDS ORDERED: Methocarbamol 750mg tab ORAL ONE (09:00)
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
[2021-02-14] MEDS ORDERED: NARCAN4 MG NS (09:12)
[2021-02-14] MEDS ORDERED: HYDROCODON-ACE1 EA13 ORAL (09:12)
[2021-02-14] MEDS ORDERED: NAPROXEN CR500 MG PO (09:12)
[2021-02-14] MEDS ORDERED: HYDROcodone/Acetamin 5/325 tab ORAL ONE (09:30)
--- NOTE | 2021-02-14 10:55 | Diagnostic Imaging Report ---
EXAM: CT Head Without Intravenous Contrast CLINICAL HISTORY: PAIN TECHNIQUE: Axial computed tomography images of the head/brain without intravenous contrast. CTDI is 53.4 mGy and DLP is 1018.5 mGy-cm. One or more of the following dose reduction techniques were used: automated exposure control, adjustment of the mA and/or kV according to patient size, use of iterative reconstruction technique. COMPARISON: No relevant prior studies available. FINDINGS: Brain: Unremarkable. No hemorrhage. No significant white matter disease. No edema. Ventricles: Unremarkable. No ventriculomegaly. Bones/joints: Unremarkable. No acute fracture. Soft tissues: Unremarkable. Sinuses: Unremarkable as visualized. No acute sinusitis. Mastoid air cells: Unremarkable as visualized. No mastoid effusion. IMPRESSION: No evidence of acute intracranial process. Paranasal sinuses and mastoids are clear.
--- NOTE | 2021-02-14 10:58 | Diagnostic Imaging Report ---
EXAM: XR Left Wrist Complete, 3 or More Views CLINICAL HISTORY: PAIN TECHNIQUE: Frontal, lateral and oblique views of the left wrist. COMPARISON: No relevant prior studies available. FINDINGS: Bones/joints: Unremarkable. No acute fracture. No dislocation. Soft tissues: Unremarkable. No radiopaque foreign body. IMPRESSION: Normal left wrist x-rays.
--- NOTE | 2021-02-14 11:05 | Diagnostic Imaging Report ---
EXAM: CT Cervical Spine Without Intravenous Contrast CLINICAL HISTORY: PAIN TECHNIQUE: Axial computed tomography images of the cervical spine without intravenous contrast. CTDI is 20.2 mGy and DLP is 474.7 mGy-cm. One or more of the following dose reduction techniques were used: automated exposure control, adjustment of the mA and/or kV according to patient size, use of iterative reconstruction technique. COMPARISON: None FINDINGS: Bones: Normal. Straightening of the normal cervical lordosis alignment. No acute fracture or bony lesion. Disc spaces: No subluxation. No spinal canal stenosis or neuroforaminal stenosis. Soft tissues: Normal. Other: Mildly prominent scattered lymph nodes are nonspecific but likely reactive. IMPRESSION: No acute traumatic abnormality.
[2021-02-14 11:19] VITALS: BP 110/70
--- NOTE | 2021-02-14 11:20 | NUR ---
discharged home with instruction and rx follow up with pmd
--- NOTE | 2021-02-14 12:43 | Diagnostic Imaging Report ---
EXAM: XR Right Hand, 2 Views CLINICAL HISTORY: PAIN TECHNIQUE: Frontal and lateral views of the right hand. COMPARISON: None FINDINGS: Bones/joints: No displaced fracture or dislocation identified. Joint space is maintained. No bony lesion. Soft tissues: Normal. IMPRESSION: No displaced fracture or dislocation identified.
--- NOTE | 2021-02-14 12:44 | Diagnostic Imaging Report ---
EXAM: XR Right Tibia and Fibula, 2 Views CLINICAL HISTORY: PAIN TECHNIQUE: Frontal and lateral views of the right tibia and fibula. COMPARISON: None FINDINGS: Bones/joints: No displaced fracture or dislocation identified. Joint space is maintained. No bony lesion. Soft tissues: Mild soft tissue swelling. IMPRESSION: No displaced fracture or dislocation identified.
== END 2021-02-14 11:27 | disposition home or self-care (01) ==
LOC: EMR 08:35
DX: S60.812A Abrasion of left wrist, initial encounter (principal); M25.541 Pain in joints of right hand; V43.52XA Car driver injured in collision with other type car in traffic accident, initial encounter; Y92.9 Unspecified place or not applicable
CPT/HCPCS: 29125; 70450; 72125; 73100; 73120; 73590; 81025; Z7502; 99284